=== PATIENT | female | born 1980 | race Caucasian/White ===

== ENCOUNTER 2023-04-26 14:26 | Emergency (ER) | payer MEDICARE, MEDICAID, SELFPAY ==
[2023-04-26 14:39] VITALS: BP 126/73; BP 130/82; PULSE 101; PULSE 45; RESP 18; TEMP 36.4; O2SAT 95; O2SAT 97; BMI 19.1
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
[2023-04-26 17:55] VITALS: RESP 18
--- NOTE | 2023-04-27 16:58 | MHC.CARE ---
Pt referred to [facility] for 3 day follow up today 04/27/23, called [facility] and they confirmed they received it.
== END 2023-04-26 19:27 | disposition home or self-care (01) ==
PROVIDERS: Emergency Provider Emergency Medicine
DX: F41.9 Anxiety disorder, unspecified (principal); F14.90 Cocaine use, unspecified, uncomplicated; F31.9 Bipolar disorder, unspecified; Z11.52 Encounter for screening for COVID-19; Z79.899 Other long term (current) drug therapy
CPT/HCPCS: 36415; 80053; 80143; 80179; 80307; 81001; 81025; 85025; 87086; 87635; 99284; S9485

== ENCOUNTER 2023-10-16 23:00 | Emergency (ER) | payer MEDICARE, MEDICAID, SELFPAY ==
--- NOTE | 2023-10-16 23:14 | ED.GENADULT ---
HPI - General Adult General Stated complaint: OD Time Seen by Provider: 10/16/23 23:13 Source: patient and family (A friend) Mode of arrival: ambulatory Limitations: no limitations History of Present Illness ED Provider: DR. Kebede HPI narrative: 42-year-old female was dropped by a friend to our emergency department after was found unresponsive for about 10 days, friend admitted to using cocaine and heroin. Patient was brought into the ED and was given 8 mg of Narcan intranasally, patient started to respond to Narcan, patient admitted to smoking heroin to get high, no SI, no HI. Related Data Allergies Allergy/AdvReac Type Severity Reaction Status Date / Time No Known Allergies Allergy Unverified 01/06/20 15:40 Review of Systems Review of Systems: All other systems are reviewed and are negative Constitutional: Reports as per HPI and Reports no additional constitutional complaints Eyes: Reports as per HPI and Reports no additional eye complaints Reports system reviewed and no additional complaints, except as documented Cardiovascular: Reports as per HPI and Reports no additional cardiovascular complaints Respiratory: Reports as per HPI and Reports no additional respiratory complaints Gastrointestinal: Reports as per HPI and Reports no additional gastrointestinal complaints Genitourinary: Reports no additional female genitourinary complaints Musculoskeletal: Reports no additional musculoskeletal complaints Skin/Breast: Reports system reviewed and no additional complaints, except as docu Psychiatric: Reports no additional psychiatric complaints Endocrine: Reports no additional endocrine complaints Hematologic/Lymphatic: Reports no additional hematologic/lymphatic complaints Allergic/Immunologic: Reports no additional allergic/immunologic complaints Reports system reviewed and no additional complaints, except as documented and Reports Abnormal speech present [facility] Past Medical History Medical History Migraine Anxiety Bipolar 1 disorder Social History Social History Patient Tobacco Use Status: Never used Tobacco Physical Exam ED Vital Signs: Vital signs have been reviewed and appear to be correct. Blood pressure elevated. Heart rate normal. Respiratory rate normal. Temperature normal. Oxygen saturation normal. Appearance: Initially diaphoretic, unresponsive after was given 8 mg of Narcan intranasally patient became Alert. Oriented X3. No acute distress. Head: Normal external exam. Normocephalic. Atraumatic. No Lyons signs noted. No raccoon eyes noted Eyes: Pinpoint pupil, PERRLA. EOMI. Conjunctiva and sclera normal. Eyelids normal. ENT: TM's Normal. Pharynx normal. Uvula midline. Moist mucous membranes. No trismus noted. No drooling noted. No muffled voice noted. Neck: Normal inspection. Neck supple. FROM. No adenopathy. Thyroid Normal. No meningeal signs. No neck mass noted. CVS: Normal heart rate and rhythm. Heart sound normal. No murmurs noted. Pulses normal throughout. Respiratory: No respiratory distress. Painless inspiration. Breath sounds normal. No wheezes/rales/rhonchi noted. Chest nontender. No accessory muscle usage noted or decreased air movement noted. Abdomen: Soft and nontender. Bowel sounds normal in all 4 quadrants. No distention noted. No organomegaly noted. No visible injury noted. Back: No CVA tenderness. Full range of motion noted. Skin: Skin warm and dry. Normal skin color. Normal skin turgor. No rashes/lesions/lacerations noted. Extremities: No lower extremity edema. Extremities exhibit normal range of motion. Extremities nontender. Neuro: Oriented X 3. Cranial nerve exam: II-XII are grossly intact No motor deficit. No sensory deficit. Reflexes normal. Patient Orientation: Person, Place, Time and Situation, okay hygiene and grooming. Fair eye contact, attentive, no tics or tremors. Level of Consciousness: Awake, Appropriate and Alert Patient Behavior: Appropriate, Guarded, Cooperative and Anxious Mood Description: Constricted, Blunted and Apprehensive Affect Description: Constricted, Blunted and Apprehensive Patient Cognition Impaired: No Ability to Follow Directions: Excellent Speech Pattern: Clear, Appropriate and Spontaneous Speech, nonpressured, spontaneous with regular rate and rhythm, normal volume and prosody. No dysarthria. Memory Description: Intact, Immediate Intact and Short Term Intact Hallucinations: None Delusions: Not Present Thought Process: Intact Thought Content: positive for Intact, positive for Logical, denies Suicidal Ideation and denies Homicidal Ideation. Depressive Symptoms: Not present. Judgement and Insight: Limited but adequate. Course Reevaluation(s) Reevaluation #1: 42-year-old female came in unresponsive after using heroin with respiratory depression responded to Narcan, patient declined SI or HI. Patient was offered to talk to recovery team but declined will provide Narcan to take home and discharge. Time: 02:00 Medical Decision Making Differential Diagnosis Differential Diagnoses: The differential diagnosis associated with the presentation includes (Anxiety, ACS, syncope, dysrhythmia, SI, unintentional drug overdose, electrolyte derangement, severe anemia.) Admission/Observation Consideration of admission/observation: Escalation of care including admission/observation considered Lab Data [facility] Lab Attestation statement: I reviewed the patient's lab results. Independent Interpretation I performed an independent interpretation of an: EKG (Normal sinus rhythm at 93 b.p.m., normal intervals, nonspecific T-wave inversion.) Discharge Plan Discharge Clinical Impression: Accidental heroin overdose Patient Disposition: Home, Self-Care Instructions: Polysubstance Abuse (ED) Print Language: Korean
--- NOTE | 2023-10-16 23:15 | ECG_ITS ---
Test Reason : OVERDOSE Blood Pressure : / mmHG Vent. Rate : 093 BPM Atrial Rate : 093 BPM P-R Int : 132 ms QRS Dur : 082 ms QT Int : 396 ms P-R-T Axes : 072 087 013 degrees QTc Int : 492 ms Normal sinus rhythm Nonspecific ST abnormality Abnormal ECG No previous ECGs available Referred By: Higinio Garcia Electronically Signed By:MONTRELL ARAUZ MD
[2023-10-16 23:22] LABS: Venous Blood Gas Refer to POC result
[2023-10-16 23:22] LABS: MANUAL DIFF FLAG NO
[2023-10-16 23:23] LABS: Basophils Absolute Auto 0.1 X10*3/uL (0.0-0.2); Basophils Percent Auto 0.7 % (0-2); Eosinophils Absolute Auto 0.1 X10*3/uL (0.0-0.4); Eosinophils Percent Auto 0.8 % (0-4); Hematocrit 37.5 % (37.0-47.0); Hemoglobin 12.7 g/dl (12.0-16.0); Imm Gran Abs Auto 0.01 X10*3/uL (0.00-0.03); Imm Gran Pct Auto 0.1 % (0.0-0.4); Lymphocytes Absolute Auto 3.5 X10*3/uL (1.2-4.9); Lymphocytes Percent Auto 41.8 % (20-40); Mean Corpuscular HGB Conc 33.9 g/dl (31.0-35.0); Mean Corpuscular Hemoglobin 31.1 pg (27.0-33.0); Mean Corpuscular Volume 91.7 fL (80.0-98.0); Mean Platelet Volume 10.8 fL (9.4-12.3); Monocytes Absolute Auto 0.5 X10*3/uL (0.1-1.2); Monocytes Percent Auto 5.5 % (2-11); Neutrophils Absolute Auto 4.2 x10*3/uL (2.0-8.3); Neutrophils Percent Auto 51.1 % (45-73); Platelet Count 291 X10*3/uL (160-400); Red Blood Count 4.09 X10*6/uL (4.20-5.50); Red Cell Distribution Width 11.8 % (11.0-16.0); White Blood Count 8.3 X10*3/uL (4.8-10.8)
[2023-10-16 23:24] LABS: VBG HCO3 25 mmol/L (22-26); VBG pCO2 46 mmHg; VBG pH 7.33 (7.32-7.43); VBG pO2 93 mmHg
[2023-10-16 23:30] VITALS: BP 134/71; PULSE 81; RESP 16; TEMP 36.7; O2SAT 98; BMI 19.4
[2023-10-16 23:49] LABS: Troponin-I High Sensitivity < 2.7 ng/L (<3.5-17.0)
[2023-10-17] VITALS: BP 94/67; PULSE 82; RESP 16; TEMP 37.2; O2SAT 98
[2023-10-17 00:15] LABS: Prothrombin Time 12.7 SEC (11.1-13.3)
[2023-10-17 00:33] LABS: Alanine Aminotransferase 34 U/L (0-31); Albumin Level 4.5 g/dL (3.5-5.0); Alkaline Phosphatase 57 U/L (39-117); Anion Gap 15 (12-20); Aspartate Amino Transferase 54 U/L (5-31); Bilirubin Total 0.6 mg/dL (0.0-1.0); Blood Urea Nitrogen 12 mg/dL (9-16); Calcium 9.6 mg/dL (8.4-10.2); Carbon Dioxide 23 mmol/L (22-29); Chloride 103 mmol/L (96-108); Estimated Glomerular Filt Rate 58; Ethanol < 10 mg/dL; Glucose Random 270 mg/dL (60-115); Sodium 138 mmol/L (135-145); Total Protein 7.4 g/dL (6.5-8.0)
--- NOTE | 2023-10-17 01:51 | PC.NURSE ---
Per Dr. Kebede, lactic acid does not need to be drawn at this time.
[2023-10-17 02:00] VITALS: BP 99/56; PULSE 78; RESP 16; TEMP 36.6; O2SAT 98
[2023-10-17] MEDS: Naloxone HCl Nasal TAKE HOME 4 MG SPRAY 8 MG NOSTRILALT (02:01)
[2023-10-17 02:15] VITALS: BP 101/56; PULSE 79; RESP 16; TEMP 36.7; O2SAT 98
== END 2023-10-17 02:16 | disposition home or self-care (01) ==
LOC: HO.ED 10-17 01:58
PROVIDERS: Emergency Provider Emergency Medicine
DX: T40.1X1A Poisoning by heroin, accidental (unintentional), initial encounter (principal); T40.5X1A Poisoning by cocaine, accidental (unintentional), initial encounter; F11.29 Opioid dependence with unspecified opioid-induced disorder; R94.31 Abnormal electrocardiogram [ECG] [EKG]; Y92.9 Unspecified place or not applicable; R06.02 Shortness of breath; Z71.51 Drug abuse counseling and surveillance of drug abuser; Z51.81 Encounter for therapeutic drug level monitoring; Z79.899 Other long term (current) drug therapy
CPT/HCPCS: 36415; 80053; 80307; 82803; 84484; 85025; 85610; 93005; 99283; 99285

== ENCOUNTER → 2023-10-16 23:15 | Outpatient (BNV) | payer MEDICARE, MEDICAID, SELFPAY | PROVIDERS: Emergency Provider Emergency Medicine; Visit Provider Internal Medicine Cardiovascular Disease | DX: R94.31 Abnormal electrocardiogram [ECG] [EKG] (principal) | CPT/HCPCS: 93010 ==

== ENCOUNTER 2025-02-07 06:28 | Emergency (ER) | payer MEDICAID, SELFPAY ==
[2025-02-07 06:31] VITALS: BP 113/81; PULSE 98; RESP 16; TEMP 36.1; O2SAT 99; BMI 19.1
--- NOTE | 2025-02-07 06:41 | ECG_ITS ---
Test Reason : CP Blood Pressure : */* mmHG Vent. Rate : 85 BPM Atrial Rate : 85 BPM P-R Int : 124 ms QRS Dur : 88 ms QT Int : 374 ms P-R-T Axes : 67 76 -9 degrees QTcB Int : 445 ms Normal sinus rhythm Nonspecific ST abnormality Abnormal QRS-T angle, consider primary T wave abnormality Abnormal ECG When compared with ECG of 16-Oct-2023 23:17, No significant change was found Referred By: Jolene Contreras Electronically Signed By: MONTRELL ARAUZ MD
[2025-02-07 06:44] VITALS: BP 109/77; BP 111/80; PULSE 82; PULSE 95
[2025-02-07 06:45] VITALS: BP 116/89; PULSE 101
--- NOTE | 2025-02-07 06:51 | ED_ITS ---
HPI - General Adult General Chief complaint: General Medical Stated complaint: Nauseous, blurry vision Time Seen by Provider: 02/07/25 06:32 Source: patient and old records reviewed Mode of arrival: ambulatory Limitations: no limitations History of Present Illness ED Provider: MERE Related Data Allergies Allergy/AdvReac Type Severity Reaction Status Date / Time No Known Allergies Allergy Verified 02/07/25 06:34 [facility] Past Medical History Attestation statement: The following information was validated with the patient. Source: old records reviewed Medical History Migraine Anxiety Bipolar 1 disorder Social History Social History Patient Tobacco Use Status: Never used Tobacco Substance Use Type: Heroin Advance Directives: No Advance Directives Information Provided: No Physical Exam ED Vital Signs: Vital Signs - 24 hr 02/07/25 06:31 02/07/25 06:44 02/07/25 06:44 Temperature 97 F Pulse Rate 98 82 95 Respiratory Rate 16 Blood Pressure 113/81 109/77 111/80 Pulse Oximetry 99 Oxygen Delivery Method Room Air 02/07/25 06:45 Temperature Pulse Rate 101 H Respiratory Rate Blood Pressure 116/89 Pulse Oximetry Oxygen Delivery Method BMI result Body Mass Index 19.1 Course Course Course Narrative: patient LWBS - she had EKG which I reviewed and when I went to see her she reportedly told tech she had to use bathroom she then proceeded to walk out of the department. automotive diagnostic technician asked her to stay for eval but she refused. I did go outside to try to talk to her but she was not visible in the parking lot. Patient left in under 20 min from presentation. Jolene Contreras DO 02/07/25 0657 Medical Decision Making Differential Diagnosis Differential Diagnoses: The differential diagnosis associated with the presentation includes Admission/Observation Consideration of admission/observation: Escalation of care including admission/observation considered Lab Data [facility] Lab Attestation statement: I reviewed the patient's lab results. Independent Interpretation I performed an independent interpretation of an: EKG Interpretation: Rate: 85 Rhythm: NSR [place]: normal Normal P waves. Normal APURVA. Normal QRS complex. ST T wave : no ANAT, nonspecific ST T wave changed in inf leads - subtle ST depressions in inf leads which were present in 2023 qTC: 445 prior studies: no sig change from prior The study has been interpreted contemporaneously by me. . Discharge Plan Discharge Clinical Impression: Dizziness Patient Disposition: Left Without Being Seen
--- OUTSIDE RECORDS SUMMARY | 2025-02-07 06:52 | XMS_ITS | Encounter Summary ---
Author Organization [employer] Address [address] [place] [address] Care Team Providers Care [employer] Name Role Phone Lina Mcneil Unavailable Unavailable Reason for Visit * Reason Comments Med Refill Encounter Details Date Type Department Care Team (Late st Contact Info) Description 11/12/2024 Refill [place] [facility] [address] [place] [address] Carol Bruce DO [address] [place] [address] Bipolar 2 disorder ([facility]) Social History Tobacco Use Types Packs/Day Years Used Date Smoking Tobacco: Former Cigarettes 0.8 18 Smokeless Tobacco: Never Alcohol Use Standard Drinks/Week Comments Not Currently 0 (1 standard drink = 0.6 oz pur e alcohol) Housing Stability Answer Date Recorded What is your housing situation today? I have [place] 10/16/[address] you li ve. Do you have problems with any of the following? None of the above 10/16/2023 Food Insecurity Answer Date Recorded Within the past 12 months, y ou worried that your food would run out before you got money to buy more: Never True 10/16/2023 Within the past 12 months,th e food you bought just didn't last and you didn't have enough money to get more: Never True Transportation Answer Date Recorded In the past 12 months, has l ack of transportation kept you from medical appts, meetings, work or from getting things needed for daily living? No 10/16/2023 Utilities Answer Date Recorded In the past 12 months, has t he electric, gas, oil or water company threatened to shut off services in your home? No 10/16/2023 Depression Answer Date Recorded Patient Health Questionnaire-2 Score 0 10/16/2023 Internet Access Answer Date Recorded Internet Access Q1 Yes 12/22/2023 Internet Access Q2 Not on file 12/22/2023 Comments Unknown Sex and Gender Information Value Date Recorded Sex Assigned at Female 04/26/2022 3:29 PM EST Legal Sex Female 5:34 PM EDT Gender Identity Female 04/26/2022 3:29 PM EST Sexual Orientation Don't know 05/20/2022 12 :50 PM EST documented as of this encounter Miscellaneous Notes * Telephone Encounter - [place] David - 11/12/2024 9:21 AM EDT OV 10/16/23 CM No future medical appts scheduled at this time documented in this encounter Plan of Treatment Not on file documented as of this encounter Visit Diagnoses Diagnosis Bipolar 2 disorder (CMS/HCC) (HCC) Other bipolar disorders documented in this encounter Care Teams [employer] Relationship Specialty Start Date End Date Lina Mcneil Community Health Worker 08/26/22 documented as of this encounter
--- OUTSIDE RECORDS SUMMARY | 2025-02-07 06:52 | XMS_ITS | Encounter Summary ---
Author Organization [email or web address] Address [address] [place] [address] Care Team Providers Care Cancer Center Director Name Role Phone Prema Dong Primary Care Provider Unavailable Lina Mcneil Unavailable Unavailable Inactive/Transferred Primary Care Provider Unava ilable Encounter Details Date Type Department Care Team (Late st Contact Info) Description 09/17/2023 Orders Only [place] [facility] [address] [place] [address] Prema Dong FNP Social History Tobacco Use Types Packs/Day Years Used Date Smoking Tobacco: Former Cigarettes 0.8 18 Smokeless Tobacco: Never Alcohol Use Standard Drinks/Week Comments Not Currently 0 (1 standard drink = 0.6 oz pur e alcohol) Housing Stability Answer Date Recorded What is your housing situation today? I have [place] 02/12/[address] you li ve. Do you have problems with any of the following? None of the above 02/12/2023 Food Insecurity Answer Date Recorded Within the past 12 months, y ou worried that your food would run out before you got money to buy more: Never True 02/12/2023 Within the past 12 months,th e food you bought just didn't last and you didn't have enough money to get more: Never True Transportation Answer Date Recorded In the past 12 months, has l ack of transportation kept you from medical appts, meetings, work or from getting things needed for daily living? No 02/12/2023 Utilities Answer Date Recorded In the past 12 months, has t he electric, gas, oil or water company threatened to shut off services in your home? No 02/12/2023 Depression Answer Date Recorded Patient Health Questionnaire-2 Score 0 04/26/2022 Comments Unknown Sex and Gender Information Value Date Recorded Sex Assigned at Female 04/26/2022 3:29 PM EST Legal Sex Female 5:34 PM EDT Gender Identity Female 04/26/2022 3:29 PM EST Sexual Orientation Don't know 05/20/2022 12 :50 PM EST documented as of this encounter Plan of Treatment Not on file documented as of this encounter Procedures Procedure Name Priority Date/Time Associated Diagnosis Comments XR CHEST 2 VIEWS Routine 09/13/2023 11:26 AM EDT documented in this encounter Results * XR Chest 2 Views (09/13/2023 11:26 AM EDT) Anatomical Region Laterality Modality Chest Radiographic Pamela ging Prema STANLEY IMG XR PROCEDURES Flavia l Result documented in this encounter Visit Diagnoses Not on filedocumented in this encounter Care Teams Cancer Center Director Relationship Specialty Start Date End Date Prema Dong FNP PCP - General Family Medicine 04/08/22 09/27/24 Inactive/Transferred PCP - General 09/28/24 09/28/24 Lina Mcneil Community Health Worker 08/26/22 documented as of this encounter
--- OUTSIDE RECORDS SUMMARY | 2025-02-07 06:52 | XMS_ITS | Clinical Summary ---
Author Organization [employer] Address [address] [place] [address] 7 [place] [address] Care Team Providers Care Dip Unit Operator Name Role Phone Lina Mcneil Unavailable Unavailable Allergies Active Allergy Reactions Criticality Noted Date Comments Tramadol 04/26/2022 Other reaction(s): Unknown Medications SUMAtriptan (Imitrex) 100 MG tablet Take 100 mg by mouth. 10/05/2021 Active omeprazole (PriLOSEC) [address] capsuleIndicatio ns:Gastroesophag eal reflux disease without esophagitis TAKE 1 CAPSULE BY MOUTH EVERY DAY 90 capsule 3 09/11/2023 Active fluticasone (Flonase) 50 MCG/ACT nasal sprayIndications :Acute non-recurrent sinusitis, unspecified location SPRAY 2 SPRAYS INTO EACH NOSTRIL IN THE MORNING 48 mL 1 12/31/2023 Active OXcarbazepine (Trileptal) 600 MG tabletIndication s:Bipolar 2 disorder (CMS/HCC) ([facility]) TAKE 1 TABLET BY MOUTH EVERY DAY 90 tablet 2 02/17/2024 Active sertraline (Zoloft) 50 MG tabletIndication s:Bipolar 2 disorder (CMS/HCC) ([facility]) TAKE 1 TABLET (50 MG) BY MOUTH ONCE PER DAY. 90 tablet 3 04/26/2024 04/21/19 26 Active risperiDONE (RisperDAL) 1 MG tabletIndication s:Bipolar II disorder (CMS/HCC) ([facility]) TAKE 1 TABLET BY MOUTH EVERY DAY 90 tablet 2 07/02/2024 Active Active Problems Problem Noted Date Diagnosed Date Bipolar 2 disorder (CMS/HCC) 04/26/2022 Endometriosis 04/26/2022 Generalized anxiety disorder 04/26/2022 GERD (gastroesophageal reflux disease) 3 History of appendectomy 04/26/2022 Migraine without aura and wi thout status migrainosus, not intractable 04/26/2022 Seasonal allergic rhinitis 04/26/2022 Tension headache 04/26/2022 Twitching 04/26/2022 History of kidney stones 04/26/2022 assisted current use of antipsychotic medicatio n 04/26/2022 History of crack cocaine use 04/26/2022 Costochondritis 04/26/2022 Assessment & Plan (04/26/2022 8:38 PM EST): Reproducible pain with palpation of the costochondral junction on the left sternal border. EKG sinus bradycardia. Will reorder stress test out of abundance of caution. Discussed treatment options - plan to trial Naproxen BID with food x 14 days. Reviewed medication, administration, and potential side effects. Reviewed when to call clinic, when to go to ER. Chest pain 04/26/2022 Overview (10/16/2023): Will refer to cardiology for further work up. No evidence of ACS in Emergency Department. Gave note for work. Advised any worsening sx to go to ED Assessment & Plan (04/26/2022 8:38 PM EST): As above - chest pain most likely costochondritis. EKG normal, will order stress test, and do labwork. Fatigue 04/26/2022 Assessment & Plan (04/26/2022 8:39 PM EST): Reports fatigue and dizziness. Will check labs. Encounters Date Type Department Care Team Description 11/12/2024 Alisaill Jacumba [facility] [address] [place] [address] [phone] Carol Bruce DO Bipolar 2 disorder (CMS/HCC) from Last 3 Months Social History Tobacco Use Types Packs/Day Years Used Date Smoking Tobacco: Former Cigarettes 0.8 18 Smokeless Tobacco: Never Tobacco Cessation:Counseling Given: Not Answered Alcohol Use Standard Drinks/Week Comments Not Currently [...] Don't know 05/20/2022 12 :50 PM EST Last Filed Vital Signs Vital Sign Reading Time Taken Comments Blood Pressure 120/82 10/16/2023 10:57 AM EDT Pulse 94 10/16/2023 10:57 AM EDT Temperature 36.8 C (98.3 F) 10/16/2023 10:57 AM EDT Respiratory Rate 16 10/16/2023 10:57 AM EDT Oxygen Saturation 99% 04/26/2022 3:45 PM EST Inhaled Oxygen Concentration - - Weight 43.6 kg (96 lb 3.2 oz) 10/16/2023 10:57 A M EDT Height 165.1 cm (5' 5 ) 10/16/2023 10:57 AM EDT Body Mass Index 16.01 10/16/2023 10:57 AM EDT Plan of Treatment Health Maintenance Due Date Last Done Comments HIV Screening 1981 Disability Screening 1981 Alcohol/Substance Use Screening 1993 Family Planning (PISQ) 1996 HPV Vaccines (1 - 3-dose series) 1996 Hepatitis C Screening 12/18/1999 Hepatitis B Vaccines (1 of 3 - 19+ 3-dose series) 2000 HPV/Cotest 12/18/2011 Mammogram 2021 Dental Oral Exam 09/16/2022 03/18/2022, 11/2018, 10/27/2017, Additional history exists Dental Prophylaxis 09/16/2022 03/18/2022, 0 06/26/2018, 05/24/2016 Dental X-Ray: Bitewings 03/19/2023 03/18/20, 10/27/2017, 02/12/2016 Tobacco Screening 08/27/2023 08/26/2022 Cervical Cancer Screening 04/09/2024 Pap Smear 04/09/2024 04/09/2021 Depression Screening 10/15/2024 10/16/2023, 10/16/19 24 SDOH Screening 10/15/2024 10/16/2023 COVID-19 Vaccine ( - season) 2024 07/26/2020, 07/02/2020 Influenza Vaccine (#1) 2024 , 02/07/2022, 02/02/2022, Additional history exists Dental X-Ray: Full Mouth 03/19/2025 03/18/2022, 01/20 DTaP/Tdap/Td Vaccines (2 - Td or Tdap) 10/16/2027 10/15/2017, 06/21/2002 Zoster Vaccines (1 of 2) 12/18/2031 RSV Patients and Patients Aged 60 years or older (1 - 1-dose 75+ series) 2056 HIB Vaccines Aged Out No longer eligi ble based on patient's age to complete this topic Hepatitis A Vaccines Aged Out No long er eligible based on patient's age to complete this topic IPV Vaccines Aged Out No longer eligi ble based on patient's age to complete this topic Meningococcal B Vaccine Aged Out No l onger eligible based on patient's age to complete this topic Meningococcal Vaccine Aged Out No chris anna eligible based on patient's age to complete this topic Pneumococcal Vaccine: Pediatrics (0 to 5 Years) and At-Risk Patients (6 to 49) Years Aged Out No longer eligible based on patient's age to complete this topic RSV under 20 months Aged Out No longe r eligible based on patient's age to complete this topic Rotavirus Vaccines Aged Out No longer eligible based on patient's age to complete this topic Procedures Procedure Name Priority Date/Time Associated Diagnosis Comments PROPHYLAXIS - ADULT Routine 03/18/2022 1 2:00 AM EST INTRAORAL - COMPLETE SERIES OF RADIOGRAPHIC IMAGES Routine 03/18/2022 12:00 AM EST PERIODIC ORAL EVALUATION - ESTABLISHED PATIENT Routine 03/18/2022 12:00 AM EST PAP/HPV Routine 04/09/2021 from Last 3 Months or Most Recently Relevant to Health Maintenance Results * Pap Smear (04/09/2021) Pap smear PAP - NEG / HPV - NEG GC/Chlamy Historical Provider MD HEALTH MAINTENANCE Final Result from Last 3 Months or Most Recently Relevant to Health Maintenance [facility] D[facility] - [employer] DENTAL Care Teams Dip Unit Operator Relationship Specialty Start Date End Date Lina Mcneil Community Health Worker 08/26/22
--- OUTSIDE RECORDS SUMMARY | 2025-02-07 06:52 | XMS_ITS | Encounter Summary ---
Author Organization [employer] Address [address] [place] [address] 7 [place] [address] Care Team Providers Care Program Director/Traffic Director Name Role Phone Prema Dong Primary Care Provider Unavailable Lina Mcneil Unavailable Unavailable Inactive/Transferred Primary Care Provider Unava ilable Encounter Details Date Type Department Care Team (Latest Contact Info) Description 06/26/2018 Abstract [facility] Dental, Provider, DDS Social History Tobacco Use Types Packs/Day Years Used Date Smoking Tobacco: Never Assessed Comments Unknown Sex and Gender Information Value Date Recorded Sex Assigned at Female 04/26/2022 3:29 PM EST Legal Sex Female 5:34 PM EDT Gender Identity Female 04/26/2022 3:29 PM EST Sexual Orientation Don't know 05/20/2022 12 :50 PM EST documented as of this encounter Plan of Treatment Not on file documented as of this encounter Visit Diagnoses Not on filedocumented in this encounter Care Teams Program Director/Traffic Director Relationship Specialty Start Date End Date Prema Dong FNP PCP - General Family Medicine 04/08/22 09/27/24 Inactive/Transferred PCP - General 09/28/24 09/28/24 Lina Mcneil Community Health Worker 08/26/22 documented as of this encounter
--- OUTSIDE RECORDS SUMMARY | 2025-02-07 06:52 | XMS_ITS | Encounter Summary ---
Author Organization [employer] Address [address] [place] [address] 7 [place] [address] Care Team Providers Care Hairspring Studder Name Role Phone Prema Dong Primary Care Provider Unavailable Lina Mcneil Unavailable Unavailable Inactive/Transferred Primary Care Provider Unava ilable Encounter Details Date Type Department Care Team (Late st Contact Info) Description 04/03/2022 Abstract [facility] [address] [place] [address] Dental, Provider, DDS Social History Tobacco Use [...] ADULT Routine 03/18/2022 1 2:00 AM EST PERIODIC ORAL EVALUATION - ESTABLISHED PATIENT Routine 03/18/2022 12:00 AM EST INTRAORAL - COMPLETE SERIES OF RADIOGRAPHIC IMAGES Routine 03/18/2022 12:00 AM EST CASE PRESENTATION, DETAILED AND EXTENSIVE TREATMENT PLANNING Routine 03/18/2022 12:00 AM EST 30 B AMALGAM - 1 SURF, PRIMARY OR PERMANENT Routine 03/18/2022 12:00 AM EST documented in this encounter Visit Diagnoses Not on filedocumented in this encounter Care Teams Hairspring Studder Relationship Specialty Start Date End Date Prema Dong FNP PCP - General Family Medicine 04/08/22 09/27/24 Inactive/Transferred PCP - General 09/28/24 09/28/24 Lina Mcneil Community Health Worker 08/26/22 documented as of this encounter
--- OUTSIDE RECORDS SUMMARY | 2025-02-07 06:52 | XMS_ITS | Encounter Summary ---
Author Organization [employer] Address [address] [place] [address] 7 [place] [address] Care Team Providers Care Warp Hauler Name Role Phone Prema Dong Primary Care Provider Unavailable Lina Mcneil Unavailable Unavailable Inactive/Transferred Primary Care Provider Unava ilable Reason for Visit * Reason Comments Med Refill Encounter Details Date Type Department Care Team (Late st Contact Info) Description 06/30/2024 Refill [place] [facility] [address] [place] [id number] Prema Dong FNP Bipolar II disorder ([facility]) Social History Tobacco Use Types Packs/Day Years [...] encounter Miscellaneous Notes * Telephone Encounter - Clementine Romo [place] - 06/30/2024 8:58 AM EDT Med has not been ordered in a year. No longer on active med list documented in this encounter Plan of Treatment Not on file documented as of this encounter Visit Diagnoses Diagnosis Bipolar II disorder (CMS/HCC) (HCC) Other bipolar disorders documented in this encounter Care Teams Warp Hauler Relationship Specialty Start Date End Date rPema Dong FNP PCP - General Family Medicine 04/08/22 09/27/24 Inactive/Transferred PCP - General 09/28/24 09/28/24 Lina Mcneil Community Health Worker 08/26/22 documented as of this encounter
== END 2025-02-07 07:02 | disposition left against medical advice (07) ==
PROVIDERS: Emergency Provider Emergency Medicine
DX: R42 Dizziness and giddiness (principal); R11.0 Nausea; H53.8 Other visual disturbances; R07.9 Chest pain, unspecified; R94.31 Abnormal electrocardiogram [ECG] [EKG]
CPT/HCPCS: 93005; 99283

== ENCOUNTER → 2025-02-07 06:41 | Outpatient (BNV) | payer MEDICAID, SELFPAY | PROVIDERS: Emergency Provider Emergency Medicine; Visit Provider Internal Medicine Cardiovascular Disease | DX: R94.31 Abnormal electrocardiogram [ECG] [EKG] (principal); R07.9 Chest pain, unspecified | CPT/HCPCS: 93010 ==

== ENCOUNTER 2025-02-15 00:53 | Emergency (ER) | payer MEDICARE, SELFPAY ==
--- NOTE | ~2025-02-15 | CT_ITS ---
CLINICAL HISTORY: Swelling; Warmth; ? Infection CT right forearm with contrast Comparison: CT/SR - CT HAND RT W IV CON - 02/15/25 03:35 EDT CR - XR WRIST RT MIN 3V - 02/15/25 01:18 EDT Findings: Acute fracture or dislocation. No significant soft tissue swelling about the right forearm. No significant erosion or acute periosteal reaction identified. Ulnar and radial arteries of the right forearm enhance the level of the palmar arch. IMPRESSION: No acute right forearm findings. This document has been electronically signed by: Charlie Serrano MD on 02/15/2025 05:20:42
--- NOTE | ~2025-02-15 | CT_ITS ---
CLINICAL HISTORY: Swelling; Warmth; ? Osteo CT right hand with contrast Comparison: CR - XR WRIST RT MIN 3V - 02/15/25 01:18 EDT CR - XR HAND RT MIN 3V - 02/15/25 01:17 EDT Findings: No acute fracture or dislocation identified. Mild soft tissue swelling of the palmar soft tissues. No erosion or acute periosteal reaction. Chronic ulnar styloid avulsion fracture redemonstrated. Ulnar and radial arteries enhance to the distal digital branches. IMPRESSION: Mild soft tissue swelling of the palmar right hand without underlying features to suggest osteomyelitis. This document has been electronically signed by: Charlie Serrano MD on 02/15/2025 05:13:27
--- NOTE | ~2025-02-15 | XR_ITS ---
CLINICAL HISTORY: pain swelling Four views of the right wrist Comparison: None provided Findings: No acute fracture. No dislocation. Chronic deformity of the 1st proximal phalanx base. Chronic ulnar styloid avulsion fracture. Chronic probable triquetral fracture. No unexpected radiopaque foreign body. IMPRESSION: No acute fracture or dislocation. This document has been electronically signed by: Lamberto Jimenez MD on 02/15/2025 01:47:43
--- NOTE | ~2025-02-15 | XR_ITS ---
CLINICAL HISTORY: pain swelling Three views of the right hand Comparison: None provided Findings: No acute fracture. No dislocation. 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 Chronic ulnar styloid avulsion fracture. Middle finger radiopaque ring. No unexpected radiopaque foreign body. IMPRESSION: No acute fracture or dislocation. This document has been electronically signed by: Lamberto Jimenez MD on 02/15/2025 01:40:17
[2025-02-15 00:59] VITALS: BP 131/71; PULSE 93; RESP 16; TEMP 36.5; O2SAT 99
[2025-02-15 01:41] LABS: MANUAL DIFF FLAG NO
[2025-02-15 01:43] LABS: Hematocrit 33.4 % (37.0-47.0); Hemoglobin 11.3 g/dl (12.0-16.0); Imm Gran Abs Auto 0.02 X10*3/uL (0.00-0.03); Imm Gran Pct Auto 0.3 % (0.0-0.4); Lymphocytes Absolute Auto 1.8 X10*3/uL (1.2-4.9); Mean Corpuscular HGB Conc 33.8 g/dl (31.0-35.0); Mean Corpuscular Hemoglobin 30.0 pg (27.0-33.0); Mean Corpuscular Volume 88.6 fL (80.0-98.0); NRBC Abs Auto 0.000 X10*3/uL (0.0-0.012); NRBC Pct Auto 0.0 /100WBC (0.0-0.2); Platelet Count 236 X10*3/uL (160-400); Red Blood Count 3.77 X10*6/uL (4.20-5.50); White Blood Count 7.2 X10*3/uL (4.8-10.8)
--- OUTSIDE RECORDS SUMMARY | 2025-02-15 01:51 | XMS_ITS | Encounter Summary ---
Author Organization [employer] Address [address] [facility] 7 [place] [address] Care Team Providers Care Mate Fourth Name Role Phone Lina Mcneil Unavailable Unavailable Reason for Visit * Reason Comments Med Refill Encounter Details Date Type Department Care Team (Late st Contact Info) Description 11/12/2024 Refill [place] [facility] [address] [place] [address] Carol Bruce DO [address] [place] [address] Bipolar 2 disorder ([facility]) Social History Tobacco Use Types Packs/Day Years [...] disorders documented in this encounter Care Teams Mate Fourth Relationship Specialty Start Date End Date Lina Mcneil Community Health Worker 08/26/22 documented as of this encounter
--- OUTSIDE RECORDS SUMMARY | 2025-02-15 01:51 | XMS_ITS | Encounter Summary ---
Author Organization [employer] Address [address] [facility] 7 [place] [address] Care Team Providers Care Glycerin Supervisor Name Role Phone Prema Dong Primary Care Provider Unavailable Lina Mcneil Unavailable Unavailable Inactive/Transferred Primary Care Provider Unava ilable Encounter Details Date Type Department Care Team (Late st Contact Info) Description 09/17/2023 Orders Only [facility] [address] [place] [address] Prema Dong FNP Social History Tobacco Use [...] on filedocumented in this encounter Care Teams Glycerin Supervisor Relationship Specialty Start Date End Date Prema Dong FNP PCP - General Family Medicine 04/08/22 09/27/24 Inactive/Transferred PCP - General 09/28/24 09/28/24 Lina Mcneil Community Health Worker 08/26/22 documented as of this encounter
--- OUTSIDE RECORDS SUMMARY | 2025-02-15 01:51 | XMS_ITS | Encounter Summary ---
Author Organization [employer] Address [address] [place] [address] 7 [place] [address] Care Team Providers Care Entry Level Marketing Representative Name Role Phone Prema Dong Primary Care [...] on filedocumented in this encounter Care Teams Entry Level Marketing Representative Relationship Specialty Start Date End Date Prema Dong FNP PCP - General Family Medicine 04/08/22 09/27/24 Inactive/Transferred PCP - General 09/28/24 09/28/24 Lina Mcneil Community Health Worker 08/26/22 documented as of this encounter
--- OUTSIDE RECORDS SUMMARY | 2025-02-15 01:51 | XMS_ITS | Encounter Summary ---
Author Organization [employer] Address [address] [place] [address] 7 [place] [address] Care Team Providers Care Director Treasurer Name Role Phone Prema Dong Primary Care Provider Unavailable Lina Mcneil Unavailable Unavailable Inactive/Transferred Primary Care Provider Unava ilable Reason for Visit * Reason Comments Med Refill Encounter Details Date Type Department Care Team (Late st Contact Info) Description 06/30/2024 Refill [place] [facility] [address] [place] [id number] Prema Dong FNP Bipolar II disorder ([facility]) Social History Tobacco Use Types [...] disorders documented in this encounter Care Teams Director Treasurer Relationship Specialty Start Date End Date Prema Dong FNP PCP - General Family Medicine 04/08/22 09/27/24 Inactive/Transferred PCP - General 09/28/24 09/28/24 Lina Mcneil Community Health Worker 08/26/22 documented as of this encounter
--- OUTSIDE RECORDS SUMMARY | 2025-02-15 01:51 | XMS_ITS | Encounter Summary ---
Author Organization [employer] Address [address] [place] [address] 7 [place] [address] Care Team Providers Care [employer] Professional Name Role Phone Prema Dong Primary Care Provider Unavailable Lina Mcneil Unavailable Unavailable Inactive/Transferred Primary Care Provider Unava ilable Encounter Details Date Type Department Care Team (Late st Contact Info) Description 04/03/2022 Abstract [place] [facility] [address] [place] [address] Dental, Provider, DDS Social History Tobacco Use [...] on filedocumented in this encounter Care Teams Middle School Professional Relationship Specialty Start Date End Date Prema Dong FNP PCP - General Family Medicine 04/08/22 09/27/24 Inactive/Transferred PCP - General 09/28/24 09/28/24 Lina Mcneil Community Health Worker 08/26/22 documented as of this encounter
--- OUTSIDE RECORDS SUMMARY | 2025-02-15 01:51 | XMS_ITS | Clinical Summary ---
Author Organization [employer] Address [address] [place] [address] 7 [place] [address] Care Team Providers Care Divinity Professor Name Role Phone Lina Mcneil Unavailable Unavailable [...] 600 MG tabletIndication s:Bipolar 2 disorder (CMS/HCC) ([facility]) TAKE 1 TABLET BY MOUTH EVERY DAY 90 tablet 2 02/17/2024 Active sertraline (Zoloft) 50 MG tabletIndication s:Bipolar 2 disorder (CMS/HCC) ([facility]) TAKE 1 TABLET (50 MG) BY MOUTH ONCE PER DAY. 90 tablet 3 04/26/2024 04/21/19 26 Active risperiDONE (RisperDAL) 1 MG tabletIndication s:Bipolar II disorder (CMS/HCC) ([facility]) TAKE 1 TABLET BY MOUTH EVERY DAY [...] Twitching 04/26/2022 History of kidney stones 04/26/2022 halfway current use of antipsychotic medicatio n 04/26/2022 [...] Reports fatigue and dizziness. Will check labs. Social History Tobacco Use Types Packs/Day Years [...] the past 12 months, has t he [employer], gas, oil or water company threatened to [...] 0 06/26/2018, 05/24/2016 Dental X-Ray: Bitewings 03/19/2023 03/18/20 22, 10/27/2017, 02/12/2016 Tobacco Screening 08/27/2023 08/26/2022 Cervical Cancer Screening 04/09/2024 Pap Smear 04/09/2024 04/09/2021 Depression Screening 10/15/2024 10/16/2023, 10/16/19 24 SDOH Screening 10/15/2024 10/16/2023 COVID-19 Vaccine ( season) 2024 07/26/2020, 07/02/2020 Influenza Vaccine (#1) [...] ESTABLISHED PATIENT Routine 03/18/2022 12:00 AM EST HM PAP/HPV Routine 04/09/2021 from Last 3 Months or Most Recently Relevant to Health Maintenance Results * Pap Smear (04/09/2021) Pap smear PAP - NEG / HPV - NEG GC/Chlamy Historical Provider MD HEALTH MAINTENANCE Final Result from Last 3 Months or Most Recently Relevant to Health Maintenance Insurance [employer] STAND ADULT DENTAL - [employer] D[employer] Care Teams Divinity Professor Relationship Specialty Start Date End Date Lina Mcneil Community Health Worker 08/26/22
[2025-02-15 01:56] LABS: Alanine Aminotransferase 19 U/L (0-31); Albumin Level 4.1 g/dL (3.5-5.0); Alkaline Phosphatase 57 U/L (39-117); Anion Gap 11 (12-20); Aspartate Amino Transferase 29 U/L (5-31); Blood Urea Nitrogen 14 mg/dL (9-16); Calcium 8.4 mg/dL (8.4-10.2); Carbon Dioxide 25 mmol/L (22-29); Chloride 107 mmol/L (96-108); Creatinine Clr Calc Pharmacy 90.3; Estimated Glomerular Filt Rate > 60; IDNOW Serial# 08D9AD1C; IDNOW Serial# 6674DD1D; Influenza B2 Negative (Negative); Potassium 3.2 mmol/L (3.3-5.1); Sodium 140 mmol/L (135-145); Total Protein 6.2 g/dL (6.5-8.0)
[2025-02-15 01:57] LABS: COVID-19 Test Negative (Negative)
--- NOTE | 2025-02-15 02:42 | ED_ITS ---
HPI - Extremity Problem General Chief complaint: Extremity Problem Stated complaint: right hand injury Time Seen by Provider: 02/15/25 02:41 Source: patient Mode of arrival: ambulatory Limitations: no limitations History of Present Illness ED Provider: Joshua GRACIA HPI Narrative: The patient is a 44-year-old female presenting to the ED for evaluation of right hand swelling. Patient reports 3 days ago she developed pain in the dorsum of the right middle finger with a subsequent swelling. Patient reports the swelling advanced to the dorsum of the hand and now is encroaching upon the forearm. Patient reports associated body aches and chills without objective fever. The patient denies pain of the palmar/flexor surface, denies pain with flexion. The patient denies any known trauma or insect bite. The patient reports she has noted some subjective swelling of the bilateral feet. The patient reports a remote history of IVDA but denies any IV drug use in the past few years. The patient denies associated nausea, vomiting, chest pain, shortness of breath, abdominal pain diarrhea, urinary symptoms, or other acute complaint. Related Data Previous Rx's ?Medication ?Instructions ?Recorded cephalexin 500 mg capsule 500 mg PO BID 7 days #14 cap s 02/15/25 doxycycline hyclate 100 mg capsule 100 mg PO BID #14 c aps 02/15/25 Allergies Allergy/AdvReac Type Severity Reaction Status Date / Time No Known Allergies Allergy Verified 02/15/25 01:03 Review of Systems 2 Review of Systems: Yes all other systems are reviewed and are negative PMFSH Past Medical History Medical History Migraine Anxiety Bipolar 1 disorder Social History Social History Patient Tobacco Use Status: Never used Tobacco Substance Use Type: Heroin Advance Directives: No Advance Directives Information Provided: Yes Do you have a plan to hurt others: No Plan Physical Exam 2 Vital Signs: Vital Signs: Last Vital Signs Temp 98.6 F 02/15/25 05:50 Pulse 66 02/15/25 08:00 Resp 18 02/15/25 08:00 BP 105/70 02/15/25 08:00 Pulse Ox 97 02/15/25 08:00 O2 Del Method Room Air 02/15/25 08:00 BMI result Body Mass Index 20.0 CONSTITUTIONAL: The patient appears non-toxic, well nourished and in no acute distress. Vital signs as documented. HEAD: Atraumatic, normocephalic. EYES: EOMs grossly intact, pupils equal, conjunctiva clear, no exudate. ENT: Nares patent, no discharge. Airway patent, no audible stridor, visible mucosa is pink and moist without noted lesions. NECK: trachea is midline, no obvious masses or gross abnormalities. CHEST: Symmetric movement, normal appearance. LUNGS: Non-labored work of breathing. CARDIAC: No evidence of hypoperfusion. ABDOMEN: Nondistended, no obvious injury. : Deferred. EXTREMITIES: There is swelling noted to the dorsum of the right hand with warmth, but without overt erythema. There are multiple areas of irritation noted to the cuticles consistent with the patient reported history of frequent nail biting. No paronychia appreciated. There are multiple other abrasions noted to the bilateral hands, including 1 on the dorsal aspect of the middle phalanx of the right 3rd digit, which may be the source of the patient's symptoms. Left upper extremity demonstrates no swelling, no pedal edema. Moves all other extremities spontaneously without reported pain. No other obvious injury or deformity noted. NEURO: Alert and oriented x3, CN II-XII appear grossly intact. Cerebellar Functioning grossly intact. Speech clear and appropriate. SKIN: Warm, dry, color appropriate. No rashes or lesions noted. Course Reevaluation(s) Reevaluation #1: Physician observation continued. Uneventful night. Vital signs stable. No complaints from nursing overnight. Med reconciliation reviewed and done. Patient is homeless and there are concerns she will not be able to get her medications. CT of the R hand negative for osteomyelitis. Reveiw of labs reveal no leukocytosis/leukopenia, hypokalemia of 3.2, no other electrolyte abnormalities. Patient will need to be discharged with 7 day course of keflex and doxycycline for suspected cellulitis of the R hand. I discussed this with case management who is working on getting a better gardner through [facility]. Patient being repleted potassium with 20meq PO potassium. Will continue to monitor as we await discharge. Time: 08:36 Medications Administered Discontinued Medications Generic Name Dose Route Start Last Admin Trade Name Freq PRN Reason Stop Dose Admin Sodium Chloride 1,000 mls @ 999 mls/hr 02/15/25 03:15 02/15/25 05:28 Ns IV 02/15/25 04:15 Infused .Q1H1M JEFFERY Infusion Ceftriaxone Sodium 1 gm/ 50 mls @ 100 mls/hr 02/15/25 03:10 02/15/25 04:20 Sodium Chloride IV 02/15/25 03:39 Infused ONCE ONE Infusion Iohexol 85 ml 02/15/25 03:44 02/15/25 03:44 Iohexol 350 Mg/Ml 100 Ml Infus..Btl IV 02/15/25 03:45 85 ml ONCE ONE Administration Medical Decision Making Medical Decision Making MDM Narrative: 3:09 AM 02/15/2025 (Sony GRACIA): The patient is a 44-year-old female presenting to the ED for evaluation of right hand swelling. Patient reports 3 days ago she developed pain in the dorsum of the right middle finger with a subsequent swelling. Patient reports the swelling advanced to the dorsum of the hand and now is encroaching upon the forearm. Patient reports associated body aches and chills without objective fever. The patient denies pain of the palmar/flexor surface, denies pain with flexion. The patient denies any known trauma or insect bite. The patient reports she has noted some subjective swelling of the bilateral feet. The patient reports a remote history of IVDA but denies any IV drug use in the past few years. The patient denies associated nausea, vomiting, chest pain, shortness of breath, abdominal pain diarrhea, urinary symptoms, or other acute complaint. The patient's exam demonstrates swelling of the dorsum of the right hand with warmth but without overt erythema. There are multiple areas of irritation noted to the cuticle secondary to patient reporting a history of frequent nail biting. No paronychia appreciated. There are multiple other abrasions noted to the bilateral hands, including an abrasion to the dorsal aspect of the middle phalanx of the right 3rd digit, near where pain reportedly began. The patient's laboratory evaluation shows no leukocytosis or significant anemia, mild hypokalemia, no other electrolyte abnormality. LFTs are unremarkable. The patient's viral swabs are negative for COVID and influenza, wrist and hand x-ray demonstrate no acute fracture or other abnormality. The exact source of the patient's swelling isn't entirely clear, however there was concern for infectious process. The patient will be sent for CT of the hand and forearm to evaluate for osteomyelitis versus simple cellulitis. We will also add on lactic acid, IV fluid hydration, and empiric Rocephin. 6:14 AM 02/15/2025 (Sony GRACIA): The patient's CT has resulted and shows no evidence of osteomyelitis. There was no indication for admission for IV antibiotics at this time, however unfortunately due to social circumstances the patient has no insurance, and no means by which to get outpatient oral antibiotics. Patient will be held in the ED for case management consultation to facilitate outpatient plan of care. Admission/Observation Consideration of admission/observation: Escalation of care including admission/observation considered Lab Data MDM Lab Attestation statement: I reviewed the patient's lab results. 02/15/25 01:34 02/15/25 01:34 Labs: Lab Results 02/15/25 02/15/25 Range/Units 01:34 03:30 WBC 7.2 (4.8-10.8) X10*3/uL RBC 3.77 L (4.20-5.50) X10*6/uL Hgb 11.3 L (12.0-16.0) g/dl Hct 33.4 L (37.0-47.0) % MCV 88.6 (80.0-98.0) fL MCH 30.0 (27.0-33.0) pg MCHC 33.8 (31.0-35.0) g/dl RDW 12.7 (11.0-16.0) % Plt Count 236 (160-400) X10*3/uL MPV 10.3 (9.4-12.3) fL Immature Gran % (Auto) 0.3 (0.0-0.4) % Neut % (Auto) 65.0 (45-73) % Lymph % (Auto) 24.3 (20-40) % Redwood % (Auto) 5.9 (2-11) % Eos % (Auto) 3.9 (0-4) % Baso % (Auto) 0.6 (0-2) % Lymph # (Auto) 1.8 (1.2-4.9) X10*3/uL Redwood # (Auto) 0.4 (0.1-1.2) X10*3/uL Eos # (Auto) 0.3 (0.0-0.4) X10*3/uL Baso # (Auto) 0.0 (0.0-0.2) X10*3/uL Abs Immat Gran (auto) 0.02 (0.00-0.03) X10*3/uL Absolute Neuts (auto) 4.7 (2.0-8.3) x10*3/uL Absolute Nucleated RBC 0.000 (0.0-0.012) X10*3/uL Nucleated RBC % (auto) 0.0 (0.0-0.2) /100WBC Sodium 140 (135-145) mmol/L Potassium 3.2 L (3.3-5.1) mmol/L Chloride 107 (96-108) mmol/L Carbon Dioxide 25 (22-29) mmol/L Anion Gap 11 L (12-20) BUN 14 (9-16) mg/dL Creatinine 0.69 (0.5-1.4) mg/dL Estim Creat Clear Calc 90.3 Estimated GFR > 60 Random Glucose 119 H (60-115) mg/dL Lactic Acid 0.9 (0.5-2.0) mmol/L Calcium 8.4 D (8.4-10.2) mg/dL Total Bilirubin 0.3 (0.0-1.0) mg/dL AST 29 (5-31) U/L ALT 19 (0-31) U/L Alkaline Phosphatase 57 (39-117) U/L Total Protein 6.2 L (6.5-8.0) g/dL Albumin 4.1 (3.5-5.0) g/dL COVID-19 (AVERY) Negative (Negative) COVID-19 Clin Com See Note Influenza Type A (RANJANA) Negative (Negative) Influenza Type B (RANJANA) Negative (Negative) Influenza A & B Note See Note Radiology Impression Discussion of test interpretation with radiology: I have reviewed the radiologist's reading. Radiologist Impression: CT right forearm with contrast Comparison: CT/SR - CT HAND RT W IV CON - 02/15/25 03:35 EDT CR - XR WRIST RT MIN 3V - 02/15/25 01:18 EDT Findings: Acute fracture or dislocation. No significant soft tissue swelling about the right forearm. No significant erosion or acute periosteal reaction identified. Ulnar and radial arteries of the right forearm enhance the level of the palmar arch. IMPRESSION: No acute right forearm findings. This document has been electronically signed by: Charlie Serrano MD on 02/15/2025 05:20:42 CT right hand with contrast Comparison: CR - XR WRIST RT MIN 3V - 02/15/25 01:18 EDT CR - XR HAND RT MIN 3V - 02/15/25 01:17 EDT Findings: No acute fracture or dislocation identified. Mild soft tissue swelling of the palmar soft tissues. No erosion or acute periosteal reaction. Chronic ulnar styloid avulsion fracture redemonstrated. Ulnar and radial arteries enhance to the distal digital branches. IMPRESSION: Mild soft tissue swelling of the palmar right hand without underlying features to suggest osteomyelitis. Three views of the right hand Comparison: None provided Findings: No acute fracture. No dislocation. 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 Chronic ulnar styloid avulsion fracture. Middle finger radiopaque ring. No unexpected radiopaque foreign body. IMPRESSION: No acute fracture or dislocation. This document has been electronically signed by: Lamberto Jimenez MD on 02/15/2025 01:40:17 Four views of the right wrist Comparison: None provided Findings: No acute fracture. No dislocation. Chronic deformity of the 1st proximal phalanx base. Chronic ulnar styloid avulsion fracture. Chronic probable triquetral fracture. No unexpected radiopaque foreign body. IMPRESSION: No acute fracture or dislocation. This document has been electronically signed by: Lamberto Jimenez MD on 02/15/2025 01:47:43 Discharge Plan Discharge Clinical Impression: Cellulitis Patient Disposition: Home, Self-Care Instructions: Cellulitis (ED) Additional Instructions: You were evaluated in the ED for pain and swelling in your right hand. Your lab work was reassuring as there is no significant increase or decrease in your white blood cells indicative of advanced infection. Your lab work does show you have a mild anemia with a hemoglobin of 11.3 and hematocrit of 33.4, these are non emergent numbers that need to be followed. You had a low potassium and was given 20meq of oral potassium for repletion. The CT imaging of your hand does not show infection of the bone or deep infection. Your symptoms are most likley due to a soft skin infection called cellulitis. You are being prescribed 7 day course of Keflex and Doxycycline which are antibiotics for bacterial coverage. Please complete the entire course of medication even if your symptoms improve. Please be careful with sun exposure as doxycycline can cause sunburns and rashes from sun exposure. Please return to the emergency department if you experience fevers over 100.4?, worsening pain in the right hand, inability to move the right hand, swelling or pain that travels from the hand into the arm, chest pain, shortness of breath, or any new/worsening/concerning symptoms. Prescriptions: New cephalexin 500 mg capsule 500 mg PO BID 7 Days Qty: 14 0RF doxycycline hyclate 100 mg capsule 100 mg PO BID Qty: 14 0RF Print Language: Estonian
[2025-02-15] MEDS: iohexoL 350 MG/ML 100 ML INFUS..BTL 85 ML IV (03:44)
[2025-02-15 03:57] VITALS: BP 91/48; PULSE 77; RESP 16; TEMP 36.6; O2SAT 98
[2025-02-15 05:50] VITALS: BP 105/70; PULSE 60; RESP 15; TEMP 37; O2SAT 97
[2025-02-15 08:00] VITALS: BP 105/70; PULSE 66; RESP 18; O2SAT 97
--- NOTE | 2025-02-15 09:05 | MHC.CM.ED ---
Received case management consult overnight. Patient came to the ER due to right hand injury. Found to have cellulitis. Patient homeless and not able to afford prescriptions. Per Pedro GRACIA, patient will be on oral doxy and Keflex twice a day for 7 days. Spoke with El[facility] [place] Medications should cost $0.95 and $1.60. Met with patient in regards to discharge planning. Patient verbalizes she is homeless. Resources on housing, food pantries, and other services provided. Patient aware of prescription cost and will pick them up at the outpatient pharmacy. Patient does not have a place to go at this time but will use the phone in the lobby to find a place. CM offered transportation if needed. Chasity PETTY and Pedro GRACIA aware. Continue to monitor for d/c needs.
[2025-02-15] MEDS: Potassium Chloride ER 20 MEQ TAB.ER.PRT PO (09:08)
[2025-02-15 09:11] VITALS: BP 105/70; PULSE 66; RESP 18; TEMP 37; O2SAT 97
== END 2025-02-15 09:11 | disposition home or self-care (01) ==
PROVIDERS: Physician Assistant; Emergency Provider Emergency Medicine
DX: L03.113 Cellulitis of right upper limb (principal); R11.0 Nausea; M79.10 Myalgia, unspecified site; Z11.52 Encounter for screening for COVID-19; Z79.899 Other long term (current) drug therapy
CPT/HCPCS: 36415; 73110; 73130; 73201; 80053; 83605; 85025; 87040; 87502; 87635; 96361; 96374; 99284; 99285; J0696; Q9967

== ENCOUNTER → 2025-02-15 01:05 | Outpatient (BNV) | payer SELFPAY | PROVIDERS: Visit Provider Student in an Organized Health Care Education/Training Program | DX: M25.541 Pain in joints of right hand (principal); M79.89 Other specified soft tissue disorders; M25.531 Pain in right wrist; M25.431 Effusion, right wrist | CPT/HCPCS: 73110; 73130; 73201 ==